=== PATIENT | male | born 1965 | race Caucasian/White ===

== ENCOUNTER 2019-11-08 14:15 | Emergency (ER) | payer BC, SELFPAY ==
[2019-11-08 14:24] VITALS: BP 153/97; PULSE 110; RESP 20; TEMP 36.9; O2SAT 96; BMI 29.5
--- NOTE | 2019-11-08 14:30 | XR_ITS ---
PROCEDURE: XR CHEST PORTABLE CLINICAL HISTORY: cough/respiratory symptoms COMPARISON: No exams were available for comparison FINDINGS: The cardiomediastinal silhouette and pulmonary vascularity are within normal limits. The lungs are clear without infiltrates, suspicious nodules, or pleural effusions. No acute bony abnormalities. IMPRESSION: No acute findings. Dictated by: Gene Gifford MD 11/08/2019 14:47 Electronically signed by Gene Gifford MD in [place] 11/08/2019 14:47
--- NOTE | 2019-11-08 14:36 | [facility].COUGH ---
Cough Clinic HPI - History of Present Illness Complaint:: cough HPI:: Patient presents with 9-10 days of illness that begain with cough and some periods of shortness of breath. He actually feels better but due to the persistence of sore throat he seeks treatment at the cough clinic. He denies fevers or covid-19 exposures. Home Medications: Home Medications Medication Instructions Recorded Confirmed Type Amoxicillin [Amoxicillin 500mg Tab] 2 tab PO BID #28 tab 11/08/19 Rx Allergies/Adverse Reactions: Allergies Allergy/AdvReac Type Severity Reaction Status Date / Time No Known Allergies Allergy Verified 11/08/19 14:30 Cough [facility] Triage - Symptoms Fever History: No Chills: Yes Myalgia: Yes Nasal Drainage: Yes Sore Throat: Yes Productive Cough: Yes Non-productive Cough: No Ear or Sinus Pain: Yes Joint Pain: Yes Chest Pain: Yes Rash: No Shortness of Breath: Yes Nausea or Vomitting: Yes Headache: Yes Abdominal Pain: No Diarrhea: Yes - Exposure History Foreign Travel: No Direct Contact with COVID-19 Patient: No - Risk Factors Greater than 60 Years Old: No COPD: No Diabetes: No Heart Disease: No Home Oxygen Use: No Chronic Renal Disease: No Chronic Liver Disease: No Neurologic/Neurodevelopmental/intellectual disability: No Other Chronic Diseases: No Current Smoker: Yes Former Smoker: No Cough Clinic History I have reviewed the patient's past medical history: Yes ROS Obtained: Yes All systems reviewed & no additional complaints [facility] Exam - General General appearance: alert, in no apparent distress - Head Head exam: atraumatic, normocephalic, normal inspection - Eye Eye exam: Present: normal appearance, PERRL, EOMI - ENT ENT exam: Present: other (bilataral TM retraction with mild erythema, posterior op moderately red.) - Neck Neck exam: Present: normal inspection, full ROM, trachea midline. Absent: meningismus, lymphadenopathy - Chest Chest inspection: Present: normal inspection, symmetric chest wall rise. Absent: tenderness - Respiratory Respiratory exam: Present: normal lung sounds bilaterally. Absent: respiratory distress - Cardiovascular Cardiovascular exam: Present: regular rate, normal rhythm. Absent: JVD - Extremities Exam Extremities exam: Present: normal inspection, full ROM, normal capillary refill. Absent: calf tenderness - Neurological Exam Neurological exam: Present: alert, oriented X3 - Skin Skin exam: Present: warm, dry, intact, normal color - Lymphatic Lymphatic Findings: no adenopathy Cough Clinic MDM Vital Signs: 11/08/19 14:24 Temperature 98.4 F Temperature Source Oral Pulse Rate [Right Brachial] 110 H Respiratory Rate 20 Blood Pressure [Left Arm] 153/97 H Blood Pressure Mean [Left Arm] 115 Blood Pressure Source [Left Arm] Automatic Cuff Blood Pressure Position [Left Arm] Sitting 02 Sat by Pulse Oximetry 96 Oxygen Delivery Method Room Air - Lab Data Lab Results 11/08/19 14:30: WBC 11.9 H, RBC 4.55 L, Hgb 14.9, Hct 42.5, MCV 93.4, MCH 32.7 H, MCHC 35.0, RDW 13.0, Plt Count 335, MPV 7.4, Neut % (Auto) 71.0, Lymph % (Auto) 20.3, [place] % (Auto) 6.0, Eos % (Auto) 1.8, Baso % (Auto) 0.9, Neut # (Auto) 8.5 H, Lymph # (Auto) 2.4, [place] # (Auto) 0.7, Eos # (Auto) 0.2, Baso # (Auto) 0.1 11/08/19 14:30: Influenza Type A Ag Negative, Influenza Type B Ag Negative 11/08/19 14:30: Group A Strep Rapid Negative Orders (Tests/Meds): ORDERS Category Date Time Status Strep Screen Confirmation Stat Micro 11/08/19 14:30 Received [facility] Disposition Clinical Impression: Bilateral serous otitis media, Acute pharyngitis, Acute upper respiratory infection Disposition: Home, Self-Care Prescriptions: Amoxicillin [Amoxicillin 500mg Tab] 2 tab PO BID #28 tab Transmission Status: Pending to [facility] Referrals: Provider,Referral, [Primary Care Provider] -
[2019-11-08 14:42] LABS: Hematocrit 42.5 % (42.0-52.0); Hemoglobin 14.9 g/dL (14.1-18.0); Mean Corpuscular Hemoglobin 32.7 pg (27.0-31.2); Mean Corpuscular Volume 93.4 fl (80-94); Mean Platelet Volume 7.4 fl (7.4-10.4); Platelet Count 335 K/mm3 (142-424); Red Blood Count 4.55 M/mm3 (4.60-6.20); White Blood Count 11.9 K/mm3 (4.8-10.8)
[2019-11-08 14:43] LABS: Basophils # 0.1 K/mm3 (0-0.2); Basophils % 0.9 % (0.1-2.0); Eosinophils # 0.2 K/mm3 (0.0-0.4); Eosinophils % 1.8 % (0.1-12.0); Lymphocytes # 2.4 K/mm3 (0.7-4.5); Lymphocytes % 20.3 % (10-50); Monocytes # 0.7 K/mm3 (0.1-1.0); Neutrophils # 8.5 K/mm3 (1.8-7.8)
[2019-11-08 14:47] LABS: Strep Scrn Group A (Rapid) Negative (Negative)
[2019-11-08 14:57] VITALS: BP 153/97; PULSE 110; RESP 220; TEMP 36.9; O2SAT 96
== END 2019-11-08 15:00 | disposition home or self-care (01) ==
PROVIDERS: Emergency Provider Family Medicine
DX: H65.03 Acute serous otitis media, bilateral (principal); J06.9 Acute upper respiratory infection, unspecified; J02.9 Acute pharyngitis, unspecified
CPT/HCPCS: 36415; 71045; 85025; 87275; 87276; 87430; 99201; 99213

== ENCOUNTER → 2021-09-30 14:30 | Outpatient (CLI) | payer BC, SELFPAY ==
--- NOTE | 2021-09-30 14:33 | CT_ITS ---
FINAL REPORT CLINICAL HISTORY: PERSONAL HX OF NICOTINE DEPENDENCE smoker, 1 ppd x 40 years FINDINGS: CTDI vol (mGy): 2.[address] images of the chest were obtained using the low-dose protocol for screening. There is no evidence of mediastinal or hilar mass or adenopathy. No axillary mass or adenopathy is identified. On the lung window images, a nodule is seen at the minor fissure measuring 6 mm, likely an intrafissural lymph node. There is a groundglass nodule in the right upper lobe measuring 6 mm on image #32. Diffuse bronchial wall thickening is seen consistent with bronchitis. There are mild emphysematous changes and mild pulmonary scarring. IMPRESSION: Groundglass nodule measuring 6 mm in the right upper lobe. Nodule at the minor fissure measuring 6 mm, likely intrafissural lymph node. Lung RADS category 2. Recommend 12 month followup low-dose CT for further evaluation. Reviewed, Interpreted and Dictated by Azar Olson III, MD Transcribed by Kelsey Braga Authenticated by Azar Olson III, MD on 09/30/2021 03:46:06 PM [facility]
== END ==
PROVIDERS: PCP Family Medicine; Visit Provider Family Medicine
DX: Z87.891 Personal history of nicotine dependence (principal); Z12.2 Encounter for screening for malignant neoplasm of respiratory organs
CPT/HCPCS: 71271

== ENCOUNTER → 2022-03-10 18:19 | Outpatient (CLI) | payer BC, SELFPAY | PROVIDERS: PCP Family Medicine; Visit Provider Family Medicine | DX: U07.1 COVID-19 (principal) | CPT/HCPCS: C9803; U0003; U0005 ==